=== PATIENT | female | born 1990 | race African-American/Black ===

== ENCOUNTER 2020-04-03 10:09 | Emergency (ER) | payer OTHER ==
[~2020-04-03] VITALS: Ht 162.6 cm; Wt 58.5 kg
[2020-04-03 10:26] VITALS: Ht 162.6 cm; Wt 58.5 kg
[2020-04-03 11:44] LABS: BASOPHIL % 0.5 % (0-2); PLATELET COUNT 224 x10^3mcL (130-400); RED CELL DISTRIBUTION WIDTH 13.2 % (11.5-14.5)
[2020-04-03 12:06] LABS: CALCIUM 8.9 mg/dL (8.5-10.1); CARBON DIOXIDE 25.6 mmol/L (21-32); CHLORIDE SERUM 107 mmol/L (98-107); CREATININE SERUM 0.9 mg/dL (0.6-1.0); GFR1 > 60 mL/min; GLUCOSE SERUM 83 mg/dL (74-106); POTASSIUM SERUM 4.5 mmol/L (3.5-5.1); SODIUM SERUM 139 mmol/L (136-145)
[2020-04-03 12:14] LABS: ALBUMIN 3.7 g/dL (3.4-5.0); ALKALINE PHOSPHATASE 51 U/L (46-116); ALT/SGPT 19 U/L (14-59); AST/SGOT 13 U/L (15-37); BILIRUBIN TOTAL 1.1 mg/dL (0.20-1.00); TOTAL PROTEIN, SERUM 6.2 g/dL (6.4-8.2)
[2020-04-03 14:43] VITALS: BP 122/68
== END 2020-04-03 14:43 | disposition home or self-care (01) ==
LOC: ED 10:09
PROVIDERS: Emergency Medicine
DX: R10.2 Pelvic and perineal pain (principal); Z90.89 Acquired absence of other organs; Z98.890 Other specified postprocedural states
CPT/HCPCS: Q0092